=== PATIENT | male | born 1970 | race Caucasian/White ===

== ENCOUNTER → 2022-01-09 11:34 | Outpatient (CLI) | payer OTHER, SELFPAY ==
--- NOTE | ~2022-01-09 | XR_ITS ---
EXAMINATION: XR abdomen/kub 1V INDICATION: History of nephrolithiasis TECHNIQUE: Supine views of the abdomen were obtained on 2 radiographs. COMPARISON: 12/17/2017 FINDINGS: No definite kidney stones are identified. There is an 8 mm calcification of indeterminate l ocation projecting between the right L4 and L5 transverse processes. The bowel gas pattern is normal. There is chronic elevation of the right hemidiaphragm. IMPRESSION: 1. 8 mm right abdominal calcification of unclear location, possibly within the right ureter, and line ar calcifications of the left pelvis, possibly within the distal left ureter. Recommend correlation f or flank pain. Consider further evaluation with CT. Reviewed, dictated and finalized at location B. IMPRESSION: 1. 8 mm right abdominal calcification of unclear location, possibly within the right ureter, and linear calcifications of the left pelvis, possibly within the distal left ureter. Recommend correlation for flank pain. Consider further ehsan luation with CT.
== END ==
PROVIDERS: PCP Internal Medicine
DX: N20.0 Calculus of kidney (principal)
CPT/HCPCS: 74018

== ENCOUNTER 2023-10-22 11:47 | Emergency (ER) | payer OTHER, SELFPAY ==
--- NOTE | ~2023-10-22 | CT_ITS ---
EXAMINATION: CTA chest PE protocol DATE: 10/22/2023 13:32 INDICATION: Chest pain and shortness of breath. Pulmonary embolus. TECHNIQUE: Computed tomography angiography (CTA) of the chest was performed with 100 mL Omnipaque-350 intravenous contrast timed to evaluate the pulmonary arteries. Coronal maximum intensity projection 3D-reconstructions were created by the technologist. Automated exposure control and iterative reconst ruction technique were employed. The dose-length product was 429.71 mGy-cm. COMPARISON: Chest CT 07/31/2016 FINDINGS: The lungs demonstrate mild atelectasis. There is chronic right-sided pleural thickening. No significant pleural effusion. The heart size is normal. No pericardial effusion. There is no pulmona ry embolus. There is mild bilateral gynecomastia. There is a 4 mm stone in left kidney. There is mild thoracic spondylosis. IMPRESSION: 1. No pulmonary embolus. Reviewed, dictated and finalized at location A. IMPRESSION: 1. No pulmonary embolus.
--- NOTE | ~2023-10-22 | XR_ITS ---
EXAMINATION: XR chest 2V DATE: 10/22/2023 13:38 INDICATION: Shortness of breath. TECHNIQUE: Frontal and lateral views of the chest were obtained. COMPARISON: Chest 2 views 01/31/2019, chest CT 10/22/2023 FINDINGS: There is no pneumonia, pleural effusion, or pneumothorax. The heart size is normal. IMPRESSION: 1. No acute cardiopulmonary disease. Reviewed, dictated and finalized at location A.
[2023-10-22 12:00] VITALS: BP 140/88; PULSE 64; RESP 17; TEMP 36.7; O2SAT 99
--- NOTE | 2023-10-22 12:07 | ECG_ITS ---
SEE SCANNED COPY FOR CONFIRMED REPORT MTDD
[2023-10-22 13:08] LABS: Basophils Percent Auto 0.4 % (0.2-1.2); Eosinophils Absolute Auto 0.2 K/mm3 (0-0.3); Eosinophils Percent Auto 3.4 % (0-4.4); Immature Granulocyte Absolute 0.01 K/mm3 (0.00-0.031); Immature Granulocyte Percent A 0.1 % (0-0.5); Lymphocytes Absolute Auto 1.56 K/mm3 (0.9-3.2); Lymphocytes Percent Auto 22.4 % (18.3-44.2); Mean Corpuscular HGB Conc 33.3 g/dl (32-36); Mean Corpuscular Hemoglobin 28.9 pg (26-34); Mean Corpuscular Volume 86.6 fl (80-100); Mean Platelet Volume 9.3 fl (7.4-10.4); Monocytes Absolute Auto 0.5 K/mm3 (0.1-0.6); Neutrophils Absolute Auto 4.6 K/mm3 (1.3-6.7); Neutrophils Percent Auto 66.7 % (45.5-73.1); Platelet Count Result 209 k/mm3 (150-375); Red Blood Count 4.85 M/mm3 (4.6-6.20); Red Cell Distribution Width 13.7 % (11.5-14.5)
[2023-10-22 13:09] LABS: Appearance Urine Clear (Clear); Bilirubin Urine Negative (Negative); Blood Urine Negative (Negative); Color Urine Yellow (Yellow); Glucose Urine UA Negative (Negative); Ketones Urine Negative (Negative); Leukocyte Esterase Ur Negative LEU/UL (Negative); Nitrate Urine Negative (Negative); Protein Urine Negative (Negative); Specific Grav Ur 1.024 (1.001-1.035); Urobilinogen Urine 0.2 mg/dL (<2.0); pH Urine 5.5 (5.0-9.0)
[2023-10-22 13:20] LABS: Alanine Aminotransferase 67 U/L (6-50); Albumin Level 4.3 g/dL (3.5-5.1); Alkaline Phosphatase 104 U/L (38-126); Anion Gap 7 mmol/L (4-12); Aspartate Amino Transferase 28 U/L (17-59); Bilirubin,Total 1.2 mg/dL (0.2-1.3); Blood Urea Nitrogen 20 mg/dL (9-20); Calcium 9.4 mg/dL (8.4-10.2); Carbon Dioxide 24 mmol/L (22-30); Chloride 109 mmol/L (98-107); Estimated CRCL calculation 76 ml/min; Estimated Glomerular Filt Rate 53; Glucose 99 mg/dL (65-110); Potassium 3.6 mmol/L (3.4-5.0); Sodium 140 mmol/L (137-145)
[2023-10-22 13:23] LABS: Prothrombin Time 13.6 Seconds (11.1-14.7)
[2023-10-22 13:24] LABS: Partial Thromboplastin Time 28.1 Seconds (22.3-36.8)
[2023-10-22 13:27] LABS: Add Urine Microscopic? NO
[2023-10-22 13:33] LABS: D Dimer < 0.27 ug/mL (<0.48); NT Pro B Type Natriuretic Pept 121 pg/mL (19.9-100); Troponin I < 0.012 ng/mL (0.000-0.034)
--- NOTE | 2023-10-22 14:44 | ED.SOB ---
HPI - SOB/Dyspnea General Chief Complaint: Shortness of Breath/Dyspnea Stated Complaint: R/O PE Time Seen by Provider: 10/22/23 13:04 History of Present Illness HPI Narrative: 53-year-old male presents to the emergency department for evaluation of intermittent chest tightness shortness of breath and back pain. Patient does have a history of pulmonary embolism and is taking Eliquis. Patient states over the course of the last 3 weeks he has had worsening exertional shortness of breath and pain with exertion. Patient denies any prior history of MO and had his last stress test approximately 10 years ago. Patient states when he exerts himself at work he does sometime have chest pain. Patient reports when he walks upstairs he does have chest pain and shortness of breath. Related Data Allergies Allergy/AdvReac Type Severity Reaction Status Date / Time No Known Allergies Allergy Verified 10/22/23 11:47 Review of Systems Review of Systems: All systems reviewed & are unremarkable except as noted in HPI and below Exam Narrative: APPEARANCE: Well appearing, no pain, no distress, well-nourished. HEAD: normocephalic, atraumatic. EYES: PERRLA/EOMI, conjunctivae clear. NOSE: Normal no drainage EARS:TMS clear with good light reflex. THROAT: Pharynx clear, no exudate. NECK: Supple. No adenopathy, no masses. RESPIRATORY: Airway patent, respirations nonlabored. Clear to auscultation bilaterally, no rales, rhonchi, wheezing. CARDIOVASCULAR: Regular rate and rhythm without murmurs rubs or gallops. ABDOMINAL: Soft, nontender, nondistended, normal bowel sounds MUSCULOSKELETAL: Moves all extremities. Strength/ROM intact, No edema, No calf tenderness. NEURO: Alert. Cranial nerves II through XII intact. Grossly intact Course Course Emergency Course: Patient was offered admission for further cardiac evaluation but patient declined. Vital Signs Vital signs: Vital Signs Temperature 98.0 F 10/22/23 12:00 Pulse Rate 64 10/22/23 12:00 Respiratory Rate 17 10/22/23 12:00 Blood Pressure 140/88 10/22/23 12:00 Pulse Oximetry 99 10/22/23 12:00 Oxygen Delivery Room Air 10/22/23 12:00 Temperature 98.0 F 10/22/23 12:00 Pulse Rate 64 10/22/23 12:00 Respiratory Rate 17 10/22/23 12:00 Blood Pressure 140/88 10/22/23 12:00 Pulse Oximetry 99 10/22/23 12:00 Oxygen Delivery Room Air 10/22/23 12:37 MDM - SOB/Dyspnea MDM Narrative Medical decision making narrative: 53-year-old male presents to the emergency department for evaluation for exertional chest pain and shortness of breath. Patient was initially concerned about a pulmonary embolism the patient has a negative D-dimer and patient CTA was negative for PE. Patient is afebrile with no leukocytosis and a stable hemoglobin, patient INR is 1.0, patient's creatinine is 1.4 which is similar to his baseline. CTA showed no evidence of pulmonary embolism. Due to patient's symptoms I was concerned for ACS and I offer the patient admission for further cardiac rule out patient declined. Differential Diagnosis Differential diagnosis: Likely acute exacerbation of chronic obstructive airways disease, congestive heart failure, community acquired pneumonia and pulmonary embolism Lab Data Attestation: I reviewed the patient's lab results. 10/22/23 12:56 10/22/23 12:56 Labs: Lab Results 10/22/23 10/22/23 10/22/23 Range/Units 12:56 12:59 15:41 WBC 7.0 (4.5-10.0) K/mm3 RBC 4.85 (4.6-6.20) M/mm3 Hgb 14.0 (14.0-18.0) g/dL Hct 42.0 (42.0-52.0) % MCV 86.6 (80-100) fl MCH 28.9 (26-34) pg MCHC 33.3 (32-36) g/dl RDW 13.7 (11.5-14.5) % Plt Count 209 (150-375) k/mm3 MPV 9.3 (7.4-10.4) fl Immature Gran % (Auto) 0.1 (0-0.5) % Neut % (Auto) 66.7 (45.5-73.1) % Lymph % (Auto) 22.4 (18.3-44.2) % [place] % (Auto) 7.0 (2.6-8.5) % Eos % (Auto) 3.4 (0-4.4) % Baso % (Auto) 0.4 (
[2023-10-22 16:28] LABS: Troponin I < 0.012 ng/mL (0.000-0.034)
== END 2023-10-22 17:47 | disposition home or self-care (01) ==
PROVIDERS: Emergency Provider Emergency Medicine; PCP Internal Medicine
DX: R07.9 Chest pain, unspecified (principal); Z86.711 Personal history of pulmonary embolism; Z79.01 Long term (current) use of anticoagulants
CPT/HCPCS: 36415; 71046; 71275; 80053; 81003; 83880; 84484; 85025; 85380; 85610; 85730; 93005; 99284; Q9967